=== PATIENT | female | born 1990 | race Asian ===

== ENCOUNTER 2019-11-20 15:06 | Emergency (ER) | payer BC, SELFPAY ==
[2019-11-20 15:16] VITALS: BP 145/86; PULSE 102; RESP 16; TEMP 36.8; O2SAT 99
--- NOTE | 2019-11-20 16:29 | ED.SKABFB ---
HPI - Skin/Abscess/Foreign Bdy General Chief complaint: Skin/Abscess/Foreign Body <Hannah Corea PA-C - Last Filed: 11/20/19 18:07> Stated complaint: cyst on tailbone <Hannah Corea PA-C - Last Filed: 11/20/19 18:07> Time Seen by Provider: 11/20/19 15:58 <ENA Gutierrez Last Filed: 11/20/19 18:07> Source: patient <ENA Gutierrez Last Filed: 11/20/19 18:07> Mode of arrival: ambulatory <ENA Gutierrez Last Filed: 11/20/19 18:07> Limitations: no limitations <ENA Gutierrez Last Filed: 11/20/19 18:07> History of Present Illness HPI narrative: This is a 29-year-old female that presents the emergency department for cyst on her tailbone x3 days. Reports became more painful this morning. Denies fever or drainage. <ENA Gutierrez Last Filed: 11/20/19 18:07> Related Data Allergies/Adverse reactions: Allergies Allergy/AdvReac Type Severity Reaction Status Date / Time No Known Allergies Allergy Verified 11/20/19 15:22 <ENA Gutierrez Last Filed: 11/20/19 18:07> Review of Systems Review of Systems: Narrative: CONSTITUTIONAL: Denies fever SKIN: Reports cyst <ENA Gutierrez Last Filed: 11/20/19 18:07> All systems reviewed & are unremarkable except as noted in HPI and below <ENA Gutierrez Last Filed: 11/20/19 18:07> [facility] Family History Family History: Family History (Updated 02/22/14 @ 07:13 by DOCTOR UNKNOWN) Mother Hypertension Family history of anemia Father Carcinoma of colon Other Family history of heart disease in male family member before age 55 <ENA Gutierrez Last Filed: 11/20/19 18:07> Social History Social History: Social History Smoking status: Never smoker Alcohol intake: current <Hannah Corea PA-C - Last Filed: 11/20/19 18:07> Exam Narrative: Exam Narrative: GENERAL: Well-appearing, well-nourished, and in no acute distress. HEAD: Normocephalic, atraumatic. EYES: EOMI. BACK: Left buttock with 1cm area of fluctuance with moderate surrounding erythema and edema EXTREMITIES: Normal range of motion. No edema. SKIN: Warm, dry, no rash. NEURO: No focal deficits. Alert and oriented x3. PSYCH: Normal mood and affect <Hannah Corea PA-C - Last Filed: 11/20/19 18:07> Course Vital Signs Vital signs: Vital Signs Temperature 98.2 F 11/20/19 15:16 Pulse Rate 102 H 11/20/19 15:16 Respiratory Rate 16 11/20/19 15:16 Blood Pressure 145/86 H 11/20/19 15:16 Pulse Oximetry 99 11/20/19 15:16 Temperature 98.2 F 11/20/19 15:16 Pulse Rate 78 11/20/19 18:21 Respiratory Rate 16 11/20/19 18:21 Blood Pressure 117/75 11/20/19 18:21 Pulse Oximetry 100 11/20/19 18:21 <Hannah Corea PA-C - Last Filed: 11/20/19 18:07> Vital Signs Temperature 98.2 F 11/20/19 15:16 Pulse Rate 102 H 11/20/19 15:16 Respiratory Rate 16 11/20/19 15:16 Blood Pressure 145/86 H 11/20/19 15:16 Pulse Oximetry 99 11/20/19 15:16 Temperature 98.2 F 11/20/19 15:16 Pulse Rate 78 11/20/19 18:21 Respiratory Rate 16 11/20/19 18:21 Blood Pressure 117/75 11/20/19 18:21 Pulse Oximetry 100 11/20/19 18:21 <Maya Greene MD - Last Filed: 11/20/19 18:38> Procedures Abscess I/D back: Date of Incision: 11/20/19 <ENA Gutierrez Last Filed: 11/20/19 18:07> Time of Incision: 18:04 <Hannah Corea PA-C - Last Filed: 11/20/19 18:07> Local Anesthetic: lidocaine 1% and with epi <ENA Gutierrez Last Filed: 11/20/19 18:07> Amount of anesthesia used (mL): 2 <ENA Gutierrez Last Filed: 11/20/19 18:07> Technique: needle aspiration <ENA Gutierrez Last Filed: 11/20/19 18:07> Packing used?: none <ENA Gutierrez Last Filed: 11/20/19 18:07> I&D Results: Blood <Hannah Corea
[2019-11-20] MEDS: CEPHALEXIN 500 MG CAPSULE PO (18:17)
[2019-11-20] MEDS: metroNIDAZOLE 250 MG TABLET 500 MG PO (18:18)
[2019-11-20 18:21] VITALS: BP 117/75; PULSE 78; RESP 16; O2SAT 100
== END 2019-11-20 18:21 | disposition home or self-care (01) ==
PROVIDERS: Emergency Provider General Practice
DX: L03.317 Cellulitis of buttock (principal)
CPT/HCPCS: 10160; 99283; A9270

== ENCOUNTER 2020-10-01 13:18 | Emergency (ER) | payer BC, SELFPAY ==
[2020-10-01 13:25] VITALS: BP 153/93; PULSE 88; RESP 16; TEMP 36.3; O2SAT 100
--- NOTE | 2020-10-01 13:34 | ED.WOUNDLAC ---
HPI - Wound/Laceration General Chief Complaint: Wound/Laceration Stated Complaint: cyst on tailbone Time Seen by Provider: 10/01/20 13:34 Source: patient Mode of arrival: ambulatory Limitations: no limitations History of Present Illness HPI narrative: Patient is a 30-year-old female who presents for evaluation of abscess. Patient states she has a history of recurrent pilonidal cyst and perirectal abscesses. She states she usually has these present every year. She reports this started to occur 3 days previously, started as a small sore, she began to do sitz bath and warm compresses without any improvement. Patient denies any fever or chills. No abdominal pain. No rectal pain. No difficulty with bowel movements or urination. Related Data Allergies Allergy/AdvReac Type Severity Reaction Status Date / Time No Known Allergies Allergy Verified 10/01/20 13:49 Review of Systems Review of Systems: Narrative: CONSTITUTIONAL: Denies fever ENT: Denies rhinorrhea, congestion CARDIOVASCULAR: Denies chest pain, palpitations, or edema. RESPIRATORY: Denies cough or dyspnea. GASTROINTESTINAL: Denies abdominal pain, nausea, vomiting, or diarrhea. GENITOURINARY: Denies dysuria or hematuria. SKIN: Reports abscess to right bottom MUSCULOSKELETAL: Denies back pain NEUROLOGIC: Denies headache PMFSH Past Medical History Medical History (Updated 10/01/20 @ 14:50 by Briana Malone MD) Perirectal abscess Family History Family History (Updated 02/22/14 @ 07:13 by DOCTOR UNKNOWN) Mother Hypertension Family history of anemia Father Carcinoma of colon Other Family history of heart disease in male family member before age 55 Social History Social History Smoking status: Never smoker Alcohol intake: current Gender identity (if verbalized by the patient): Female Exam Narrative: Exam Narrative: GENERAL: Awake, alert, conversant HEAD: Normocephalic, atraumatic. EYES: PERRLA and EOMI. ENT: Nares clear, no rhinorrhea or epistaxis. Mucous membranes moist. NECK: Supple. CHEST: No respiratory distress, breathing even and non labored HEART: Regular rate, sinus rhythm ABDOMEN:Non distended, non tender : Right perirectal abscess, mild surrounding erythema, area of fluctuance and induration, tenderness to palpation, no blistering, no active drainage EXTREMITIES: Normal range of motion. No edema. SKIN: Warm, dry, no rash. NEURO:No focal deficits. Alert and oriented x3 Course Vital Signs Vital signs: Vital Signs Temperature 36.3 C L 10/01/20 13:25 Pulse Rate 88 10/01/20 13:25 Respiratory Rate 16 10/01/20 13:25 Blood Pressure 153/93 H 10/01/20 13:25 Pulse Oximetry 100 10/01/20 13:25 Temperature 36.3 C L 10/01/20 13:25 Pulse Rate 88 10/01/20 13:25 Respiratory Rate 16 10/01/20 13:25 Blood Pressure 153/93 H 10/01/20 13:25 Pulse Oximetry 100 10/01/20 13:25 Procedures Abscess I/D aida-rectal: Date of Incision: 10/01/20 Time of Incision: 14:04 Side (if applicable): right Local Anesthetic: lidocaine 1% and with epi Amount of anesthesia used (mL): 10 Technique: incised with #15 blade Amount of fluid expressed (mL): 5 Irrigation: Yes Packing used?: none I&D Results: Pus and Blood MDM - Wound/Laceration MDM Narrative Medical decision making narrative: Patient with recurrent perirectal abscess. At the time of assessment, ABCs are intact and vital signs are stable. There is some induration, erythema surrounding, abscess was anesthetized and drained. Small amount of pus and blood produced, no feculent material. No involvement of the anal mucosa. Patient will be discharged home with antibiotics, given general surgery follow-up given the recurrent nature of these. Differential Diagnosis Differential diagnosis: Likely abscess and avulsion of skin Medical Records Attestation: I review
== END 2020-10-01 15:11 | disposition home or self-care (01) ==
PROVIDERS: Emergency Provider Emergency Medicine
DX: K61.1 Rectal abscess (principal)
CPT/HCPCS: 46040; 99283

== ENCOUNTER 2021-01-30 17:44 | Emergency (ER) | payer BC, SELFPAY ==
[2021-01-30 17:50] VITALS: BP 138/80; PULSE 105; RESP 24; TEMP 37.1; O2SAT 100
--- NOTE | 2021-01-30 17:55 | ED.SKABFB ---
HPI - Skin/Abscess/Foreign Bdy General Chief complaint: Skin/Abscess/Foreign Body Stated complaint: pos bug bite Time Seen by Provider: 01/30/21 17:55 Source: patient, RN notes reviewed and old records reviewed Mode of arrival: ambulatory Limitations: no limitations History of Present Illness HPI narrative: 31-year-old female who presents to [facility] with complaints of bug bite to the anterior aspect of her left lower leg for the past 2 weeks. Patient states that the area around bite has become red and swollen with drainage noted which is clear from the bite area. Patient reports that she has been cleansing area with soap and water and applied Neosporin ointment to wound and putting bandage covering. Patient denies any acute pain to area, no known fevers, chills or sweats or any other symptoms of illness. MD complaint: rash and insect bite/sting Related Data Home Medications Medication Instructions Recorded Confirmed norethindrone-e.estradiol-iron tablet 01/30/21 [07/17 (28)] Allergies Allergy/AdvReac Type Severity Reaction Status Date / Time No Known Allergies Allergy Verified 01/30/21 17:49 Review of Systems Review of Systems: CONSTITUTIONAL: Denies fever, chills, or sweats. EYES: Denies visual changes, redness, or discharge. ENT: Denies rhinorrhea, congestion, sore throat, or otalgia. CARDIOVASCULAR: Denies chest pain, palpitations, or edema. RESPIRATORY: Denies cough or dyspnea. GASTROINTESTINAL: Denies abdominal pain, nausea, vomiting, or diarrhea. GENITOURINARY: Denies dysuria or hematuria. SKIN: red inflamed tissue to anterior aspect of left lower leg with inner white tissue and drainage. MUSCULOSKELETAL: Denies back pain, joint pain, or myalgia. NEUROLOGIC: Denies headache, numbness, or weakness. PSYCHIATRIC: Denies anxiety or depression. All systems reviewed & are unremarkable except as noted in HPI and below PMFSH Past Medical History Medical History (Updated 02/02/21 @ 09:18 by Briana French NP) Perirectal abscess Surgical History Surgical History (Updated 02/02/21 @ 09:14 by Briana French NP) No history of previous surgery Family History Family History Mother Hypertension Family history of anemia Father Carcinoma of colon Other Family history of heart disease in male family member before age 55 Social History Social History (Updated 02/02/21 @ 09:14 by Briana French NP) Smoking status: Never smoker Alcohol intake: current Substance use: never Living arrangements: with family Gender identity (if verbalized by the patient): Female Comments At time of signature, agree with nursing past medical, surgical, social and family history. There is no relevant family history pertinent to the presenting complaint Exam Narrative: GENERAL: Well-appearing, well-nourished, and in no acute distress. HEAD: Normocephalic, atraumatic. EYES: PERRLA and EOMI. ENT: Nares clear, no rhinorrhea or epistaxis. Mucous membranes moist. NECK: Supple.no lymphadenopathy CHEST: Clear to auscultation. No respiratory distress.SAO2 100% on room air HEART: Regular rate and rhythm. No murmur heard. Normal peripheral pulses. ABDOMEN: Soft, nontender, nondistended, normal active bowel sounds. EXTREMITIES: Normal range of motion. No edema. SKIN: Warm, dry, 1.5cmX1 cm of inner white draining tissue with surrounding redness and warmth total area [id number] to left lower anterior leg. No acute pain to area just voices mild irritation.Circulation, sensation and mobility intact to left lower leg and foot. NEURO: No focal deficits. Alert and oriented x3. Course Vital Signs Vital signs: Vital Signs Temperature 37.1 C 01/30/21 17:50 Pulse Rate 105 H 01/30/21 17:50 Respiratory Rate 24 H 01/30/21 17:50 Blood Pressure 138/80 01/30/21 17:50 Pulse Oximetry 100 01/30/21 17:50 Temperature 37.1 C 01/30/21 17:50 Pul
== END 2021-01-30 18:20 | disposition home or self-care (01) ==
PROVIDERS: Emergency Provider Registered Nurse
DX: L08.9 Local infection of the skin and subcutaneous tissue, unspecified (principal); S80.862A Insect bite (nonvenomous), left lower leg, initial encounter; W57.XXXA Bitten or stung by nonvenomous insect and other nonvenomous arthropods, initial encounter
CPT/HCPCS: 99213; G0463